=== PATIENT | male | born 1995 | race Caucasian/White ===

== ENCOUNTER 2019-03-13 20:15 | Emergency (ER) | payer OTHER ==
[~2019-03-13] VITALS: Ht 167.6 cm; Wt 127.0 kg
[2019-03-13 20:25] VITALS: BP 131/85
--- NOTE | 2019-03-13 20:28 | NUR ---
TO ED LOBBY AWAITING BED IN DEPT.
--- NOTE | 2019-03-13 22:25 | NUR ---
PT AMBULATED TO ER BED 10
--- NOTE | 2019-03-13 22:30 | NUR ---
23 Y/O MALE PRESENTS TO ER, C/O THROAT PAIN 01/26, [place]. PT STATES PAIN STARTED ON SATURDAY AFTER EATING DINNER. PT IS ABLE TO SWALLOW. NO SOB. NO MEDICAL HISTORY. NO KNOWN ALLERGIES. VSS. DR VELEZ AWARE. WILL CONTINUE TO MONITOR.
--- NOTE | 2019-03-13 23:30 | NUR ---
PT IS AWAKE, LAYING ON BED. NO PAIN ON THROAT. PT ABLE TO TOLERATE FLUID. VSS. DR VELEZ AWARE. WILL CONTINUE TO MONITOR.
--- NOTE | 2019-03-13 23:42 | NUR ---
PT TAKEN TO RAD VIA W/C
--- NOTE | 2019-03-13 23:45 | NUR ---
PT RETURNED FROM RAD
[2019-03-14] MEDS ORDERED: DICYCLOMINE HCL LIQUID 20 MG, ALUMINUM HYD/MAG/SIMETHICONE 30 ML, LIDOCAINE VISCOUS 2% ... PO ONE ×3 (00:50)
[2019-03-14] MEDS ORDERED: DICYCLOMINE HCL LIQUID 10 MG/5 ML UDC ONE (01:07)
[2019-03-14] MEDS ORDERED: LIDOCAINE VISCOUS 2% 20 ML UDC ONE (01:07)
[2019-03-14] MEDS ORDERED: ALUMINUM HYD/MAG/SIMETHICONE 30 ML UDC ONE (01:31)
[2019-03-14 01:41] VITALS: BP 114/76
--- NOTE | 2019-03-14 01:41 | NUR ---
Patient discharged with v/s stable. Written and verbal after care instructions given and explained. Patient verbalized understanding. Ambulatory with steady gait. All questions addressed prior to discharge. Advised to follow up with PMD.
== END 2019-03-14 01:41 | disposition home or self-care (01) ==
LOC: MED 20:15
DX: R09.89 Other specified symptoms and signs involving the circulatory and respiratory systems (principal)
CPT/HCPCS: 70360; 99283